=== PATIENT | male | born 1985 | race Hispanic/Latino ===

== ENCOUNTER 2016-12-19 16:00 | Emergency (ER) | payer SELFPAY ==
[2016-12-19 16:26] VITALS: TEMP 98.1
--- NOTE | 2016-12-19 16:31 | C.PDOC ---
History Of Present Illness CO RECUR CYST TOP OF L HAND X SEV MONTHS. REQUESTS DRAINAGE. NO HAND SURG EVAL FOR SAME. SEEN 03/2016 FOR SAME. PAIN W MOVEMENT EXAM NAD L HAND +GANGLION CYST DORSAL HAND MOBILE W FINGER FLEXION. NO ERYTHEMA MDM ADVISED NEED FOR HAND SURGEON EVAL Time Seen by Provider: 12/19/16 16:19 Chief Complaint (Nursing): Abnormal Skin Integrity History Per: Patient History/Exam Limitations: no limitations Onset/Duration Of Symptoms: Other (several months ) Current Symptoms Are (Timing): Still Present Quality: "Pain" Exacerbating Factor(s): Movement Additional History Per: Patient Past Medical History Reviewed: Historical Data, Nursing Documentation, Vital Signs Vital Signs: Last Vital Signs Temp 98.1 F 12/19/16 16:12 Pulse 80 12/19/16 17:01 Resp 18 12/19/16 17:01 BP 112/82 12/19/16 17:01 Pulse Ox 95 12/19/16 22:18 - Medical History PMH: No Chronic Diseases Surgical History: No Surg Hx Family History: States: Unknown Family Hx - Social History Hx Tobacco Use: Yes (heavy smoker) Hx Alcohol Use: Yes Hx Substance Use: No - Immunization History Hx Tetanus Toxoid Vaccination: Yes (2013) Hx Influenza Vaccination: No Hx Pneumococcal Vaccination: No Review Of Systems Except As Marked, All Systems Reviewed And Found Negative. Skin: Positive for: Other (+recur cyst on left hand, reqeusts drainage ) Physical Exam - Physical Exam Appears: Non-toxic, No Acute Distress Skin: Warm, Dry, Other (L HAND +GANGLION CYST DORSAL HAND MOBILE W FINGER FLEXION. NO ERYTHEMA) Head: Atraumatic Eye(s): bilateral: Normal Inspection Oral Mucosa: Moist Neck: Supple Extremity: Normal ROM, Capillary Refill (less than 2 seconds ) ED Course And Treatment O2 Sat by Pulse Oximetry: 95 (on RA) Pulse Ox Interpretation: Normal Progress - Re-Evaluation Re-evaluation Note: 12/19/16 16:38 PROCEDURE GANGLION CYST ASPIRATION. LOCAL INFIL 2% LIDO W EPI. STERILE PREP. ASPIRATE W 18 G W THICK SYNOVIAL FLUID REMOVAL. PT TOLERATED WELL. PAIN IN HAND IMPROVED S/ P ASPIRATION - Data Reviewed Data Reviewed: Old records Medical Decision Making Medical Decision Making: ADVISED NEED FOR HAND SURGEON EVAL Disposition Counseled Patient/Family Regarding: Diagnosis, Need For Followup - Disposition Referrals: Edith Santana MD [Provisional Staff] - Oswaldo Anderson MD [Staff Provider] - Disposition: HOME/ ROUTINE Disposition Time: 16:30 Condition: IMPROVED Instructions: Ganglion Cysts (ED) Forms: Work Excuse - Clinical Impression Clinical Impression: Ganglion cyst - Scribe Statement The provider has reviewed the documentation as recorded by the Scribe (Echo Yee) Provider Attestation: All medical record entries made by the Scribe were at my direction and personally dictated by me. I have reviewed the chart and agree that the record accurately reflects my personal performance of the history, physical exam, medical decision making, and the department course for this patient. I have also personally directed, reviewed, and agree with the discharge instructions and disposition. Orthopedic Care Application Of:: Volar Splint
[2016-12-19] MEDS ORDERED: Lidocaine 2% w Epi 1:100,000 Inj IJ ONE ×2 (16:37→16:39)
[2016-12-19 17:01] VITALS: BP 112/82; PULSE 80; RESP 18
[2016-12-19 22:16] VITALS: O2SAT 95
== END 2016-12-19 17:06 | disposition home or self-care (01) ==
LOC: C.ER 16:00
DX: M67.442 Ganglion, left hand (principal)